=== PATIENT | male | born 1970 | race Asian ===

== ENCOUNTER 2020-03-15 05:32 | Day surgery (SDC) | payer OTHER ==
[~2020-03-15] VITALS: Ht 175.3 cm; Wt 109.1 kg
[2020-03-15] MEDS ORDERED: ALBUTEROL SULFATE 2.5 MG/0.5 ML NEB SOLUTION NEB ONE (05:33)
[2020-03-15] MEDS ORDERED: BENZOCAINE 20% 50 MCG/SPRAY 57 GM TP ONE (05:33)
[2020-03-15] MEDS ORDERED: LIDOCAINE 2% 30 ML JELLY TP ONE (05:33)
[2020-03-15] MEDS ORDERED: LIDOCAINE 4% 50 ML SOLUTION TP ONE (05:33)
[2020-03-15] MEDS ORDERED: SODIUM CHLORIDE 0.9% 1,000 ML ONE (05:35)
[2020-03-15] MEDS ORDERED: ATOR40TA28 PO (06:25)
[2020-03-15] MEDS ORDERED: METO25 PO (06:25)
[2020-03-15] MEDS ORDERED: LOSA50TA37 PO (06:25)
[2020-03-15] MEDS ORDERED: CHL25 PO (06:25)
[2020-03-15] MEDS ORDERED: SODIUM CHLORIDE 0.9% 1,000 ML IV ONE (07:00)
[2020-03-15] MEDS ORDERED: MIDAZOLAM HCL 2 MG/2 ML VIAL ONE (07:33)
[2020-03-15] MEDS ORDERED: FentaNYL CITRATE-PF 100 MCG/2 ML VIAL ONE (07:33)
[2020-03-15] MEDS ORDERED: MethylPREDNISolone SOD SUCC 125 MG/2 ML VIAL IVP ONE (08:45)
[2020-03-15] MEDS ORDERED: MethylPREDNISolone SOD SUCC 125 MG/2 ML VIAL ONE (08:48)
[2020-03-15] MEDS ORDERED: OXYGEN THERAPY IH SCH (20:00)
== END 2020-03-15 10:30 | disposition home or self-care (01) ==
LOC: SURGERY 05:32
PROVIDERS: ATTEND Internal Medicine Critical Care Medicine
DX: R05 Cough (principal); J47.9 Bronchiectasis, uncomplicated; J98.09 Other diseases of bronchus, not elsewhere classified; J34.89 Other specified disorders of nose and nasal sinuses; J98.8 Other specified respiratory disorders; J38.4 Edema of larynx; E78.00 Pure hypercholesterolemia, unspecified; I10 Essential (primary) hypertension; Z87.891 Personal history of nicotine dependence; Z79.899 Other long term (current) drug therapy; Z11.59 Encounter for screening for other viral diseases
CPT/HCPCS: 31623; 31624; 71045; 87015; 87070; 87101; 87205; 87206; 87220; 87635; 88108; 88312; J2250; J2930; J3010; J7030

== ENCOUNTER 2021-12-05 06:17 | Day surgery (SDC) | payer OTHER ==
[~2021-12-05] VITALS: Ht 175.3 cm; Wt 97.7 kg
[~2021-12-05 06:17] MED LIST: ATOR40TA28 PO; CHL25 PO; LOSA-382 PO; METO25 PO
[2021-12-05] MEDS ORDERED: LIDOCAINE 2% 30 ML JELLY TP ONE (06:18)
[2021-12-05] MEDS ORDERED: ALBUTEROL SULFATE 2.5 MG/0.5 ML NEB SOLUTION NEB ONE (06:18)
[2021-12-05] MEDS ORDERED: BENZOCAINE 20% 50 MCG/SPRAY 57 GM TP ONE (06:18)
[2021-12-05] MEDS ORDERED: LIDOCAINE 4% 50 ML SOLUTION TP ONE (06:18)
[2021-12-05] MEDS ORDERED: SODIUM CHLORIDE 0.9% 1,000 ML IV ONE (06:30)
[2021-12-05] MEDS ORDERED: SODIUM CHLORIDE 0.9% 1,000 ML ONE (06:59)
[2021-12-05 07:10] LABS: COVID AG,FIA SOURCE NASAL SWAB
[2021-12-05] MEDS ORDERED: MIDAZOLAM HCL 5 MG/ML VIAL ONE (07:18)
[2021-12-05] MEDS ORDERED: FentaNYL CITRATE PF 100 MCG/2 ML VIAL ONE (07:18)
[2021-12-05] MEDS ORDERED: MethylPREDNISolone SOD SUCC 125 MG/2 ML VIAL IVP ONE (09:15)
[2021-12-05] MEDS ORDERED: MethylPREDNISolone SOD SUCC 125 MG/2 ML VIAL ONE (09:32)
[2021-12-05] MEDS ORDERED: OXYGEN THERAPY IH SCH (20:00)
== END 2021-12-05 10:50 | disposition home or self-care (01) ==
LOC: SURGERY 06:17
PROVIDERS: ATTEND Internal Medicine Critical Care Medicine
DX: R05.3 Chronic cough (principal); R91.1 Solitary pulmonary nodule; J98.09 Other diseases of bronchus, not elsewhere classified; J98.8 Other specified respiratory disorders; R06.2 Wheezing; R49.0 Dysphonia; R04.2 Hemoptysis; B37.0 Candidal stomatitis; Z20.822 Contact with and (suspected) exposure to COVID-19; Z79.899 Other long term (current) drug therapy
CPT/HCPCS: 31623; 31624; 71045; 87015; 87070; 87101; 87206; 87220; 87426; 88112; 88184; 88185; 88312; C9803; J2250; J2930; J3010; J7030; J7613; Z7610